=== PATIENT | female | born 1955 | race Caucasian/White ===

== ENCOUNTER → 2016-08-09 | Outpatient (CLI) | payer OTHER ==
--- NOTE | 2016-08-09 16:12 | DX ---
Right Wrist, 4 views including a navicular view History: Pain post trauma. Abrasion, swelling, tenderness, decreased range of motion. Comparison: None Findings: There is an acute transverse distal radial metaphysis fracture without dorsal angulation or an intra-articular component. The carpal bones look normal. The navicular is specifically normal. Th e radial styloid process is intact. Impression: Nothing acute identified. Wrist, 4 views including a navicular view Impression: Colles' fracture.
--- NOTE | 2016-08-09 16:23 | DX ---
Right Hand - Three Views Indication: Trauma. Pain. Technique: AP, oblique, and lateral views. Comparison: None. Findings: Bones of the hand are anatomically aligned. Joint spaces are normal. An acute distal radial fracture has minimal apex volar (15 degrees) angulation. A vertical fracture plane extends to the ar ticular surface of the radial styloid. Impression: 1. Acute, minimally angulated distal radial fracture. 2. No acute hand fracture. Comment: Results were called to Harish Tovar PA-C.
== END ==
LOC: BRMIMAGING 15:33
DX: S52.531A Colles' fracture of right radius, initial encounter for closed fracture (principal)
CPT/HCPCS: 73110-PO; 73130-PO

== ENCOUNTER → 2017-03-22 | Outpatient (CLI) | payer OTHER | LOC: BRMIMAGING 14:28 | PROVIDERS: ATTEND Internal Medicine | DX: M19.011 Primary osteoarthritis, right shoulder (principal); M75.31 Calcific tendinitis of right shoulder | CPT/HCPCS: 73030-PO ==

== ENCOUNTER → 2017-04-03 | Outpatient (CLI) | payer OTHER | LOC: FIMAGING 10:21 | PROVIDERS: ATTEND Internal Medicine | DX: M25.531 Pain in right wrist (principal) ==